=== PATIENT | female | born 1950 | race African-American/Black ===

== ENCOUNTER 2017-01-25 06:58 | Day surgery (SDC) | payer MEDICARE, BC ==
[~2017-01-25] VITALS: Ht 168.9 cm; Wt 65.0 kg
[2017-01-25] VITALS (10 sets, daily range): BP systolic 94–131; BP diastolic 52–74; PULSE 50–74; RESP 15–31; Ht 168.9 cm; Wt 65.0 kg
[~2017-01-25 06:58] MED LIST: AMLO-218 PO; BUPR100T6 PO; CRES10 PO; ESCI10TA PO; ISOS20TA PO
--- NOTE | 2017-01-25 07:43 | RADRPT ---
PROCEDURE: XR Chest. CLINICAL INDICATION: Preoperative TECHNIQUE: Single frontal chest x-ray. COMPARISON: None. FINDINGS: The lungs are clear of acute infiltrates, edema, effusions, or masses. Calcific atherosclerosis of t he aorta is present.. The cardiomediastinal silhouette is unremarkable. The osseous structures are intact. IMPRESSION: No acute cardiopulmonary disease. RPTAT: AA .Paco Calle MD, MD Date Time Electronically viewed and signed by .Paco Calle MD, on 01/25/2017 07:43 .L/
[2017-01-25] MEDS ORDERED: LOSA100T7 PO (07:44)
[2017-01-25] MEDS ORDERED: ATOR40TA68 PO (07:46)
[2017-01-25] MEDS ORDERED: ISOS60TA PO (07:47)
[2017-01-25] MEDS ORDERED: AMLO2.5T78 PO (07:48)
[2017-01-25] MEDS ORDERED: ESCI20TA38 PO (07:48)
[2017-01-25] MEDS ORDERED: HEPARIN 1000 UNITS/ML 10 ML INJ ONE (08:25)
[2017-01-25] MEDS ORDERED: IODIXANOL LOCM 100 ML BTL ONE (08:25)
[2017-01-25] MEDS ORDERED: LIDOCAINE 1% (MDV) 20 ML INJ ONE (08:25)
[2017-01-25] MEDS ORDERED: VERAPAMIL 5 MG INJ ONE ×2 (08:26→10:11)
[2017-01-25] MEDS ORDERED: FENTAnyl 50 MCG/ML VIAL ONE (08:26)
[2017-01-25] MEDS ORDERED: MIDAZOLAM 1 MG/ML 2 ML INJ ONE (08:26)
[2017-01-25] MEDS ORDERED: NITROGLYCERIN (IC) 100 MCG/ML INJ ONE ×2 (08:26→10:08)
[2017-01-25 08:32] LABS: BASOPHIL # 0.1 10^3/ul (0.0-0.1); BASOPHILS % 0.9 % (0.0-2.0); EOSINOPHILS # 0.1 10^3/ul (0.0-0.5); EOSINOPHILS % 1.4 % (0.0-7.0); HEMATOCRIT 37.1 % (37.0-47.0); HEMOGLOBIN 12.6 g/dl (12.0-16.0); LYMPHOCYTES # 1.9 10^3/ul (0.8-2.9); LYMPHOCYTES % 28.5 % (15.0-51.0); MEAN CORPUSCULAR HEMOGLOBIN 29.5 pg (29.0-33.0); MEAN CORPUSCULAR VOLUME 86.9 fl (82.0-101.0); MEAN PLATELET VOLUME 10.2 fl (7.4-10.4); MONOCYTE # 0.7 10^3/ul (0.3-0.9); MONOCYTES % 11.1 % (0.0-11.0); NEUTROPHIL # 3.8 10^3/ul (1.6-7.5); NEUTROPHILS % 57.8 % (39.0-77.0); PLATELET COUNT 253 10^3/UL (140-415); RED BLOOD COUNT 4.27 10^6/ul (4.20-5.40); RED CELL DISTRIBUTION WIDTH 13.3 % (11.5-14.5); WHITE BLOOD COUNT 6.6 10^3/ul (4.8-10.8)
[2017-01-25 08:56] LABS: ALBUMIN 4.1 g/dl (3.3-4.9); ALBUMIN/GLOBULIN RATIO 1.13; BILIRUBIN,INDIRECT 0.3 mg/dl (0-1.1); BILIRUBIN,TOTAL 0.3 mg/dl (0.2-1.3); CHOL/HDL RATIO 3.8 RATIO; TOTAL PROTEIN 7.7 g/dl (6.1-8.1)
[2017-01-25 08:57] LABS: CALCIUM 9.4 mg/dl (8.4-10.2); CREATININE 1.33 mg/dl (0.44-1.00); POTASSIUM 3.6 mmol/L (3.5-5.1)
[2017-01-25 09:05] LABS: INR 0.95; PROTIME 12.7 Sec (12.2-14.2)
[2017-01-25 09:06] LABS: PARTIAL THROMBOPLASTIN TIME 28.6 Sec (25.0-35.0)
[2017-01-25] MEDS ORDERED: SOD CHLORIDE 0.9% 1,000 ML IV SCH (10:14)
[2017-01-25] MEDS ORDERED: ACETAMINOPHEN 325 MG TAB PO PRN (10:30)
[2017-01-25] MEDS ORDERED: ONDANSETRON 4 MG INJ IV PRN (10:30)
[2017-01-25] MEDS ORDERED: AL HYDROX/MG HYDROX/SIMETH 30 ML CUP PO PRN (10:30)
--- NOTE | 2017-01-25 10:30 | OPR ---
Date/Time of Note Date/Time of Note DATE: 01/25/17 TIME: 10:16 Operative Report Procedure Date: Jan 25, 2017 Preoperative Diagnosis chest pain/ abnormal MPI Postoperative Diagnosis obstructive cad Operation Performed 1.Left Heart catheterization 2.Coronary angiography 3. Measurement of LVEDP 4.Moderate concious sedation x 45 minutes Surgeon: DANITA MELARA Anesthesia: other (moderate concious sedation) Estimated Blood Loss: minimal Specimens NA Grafts/Implants NA Tubes/Drains NA Complications: None Pt Condition Post Procedure: stable Disposition: PACU Indications Chest pain and abnormal mpi Operative\Procedure Findings Coronary angiography: 50-60% mid LAD, 50% OM1/LCX, 100% proximal RCA with L to R collateral flow via septal off LAD LVEDP 17 NO sig by gradient REcc: 1.Maximize medical therapy 2. Aggresive risk factor reduction 3.Smoking cessation 4.For ongoing sx consider further eval of mid LAD lesion with FFR which was unable to be done today due to worsening spasm of radial artery which was treated with nitro/verapamil Procedure Description Equipment: 6 [place] JL 3.5, JR4 Had some spasm of radial sheath on D/C improved with Nitro/verapamil DANITA MELARA Jan 25, 2017 10:27
--- NOTE | 2017-01-25 15:37 | RADRPT ---
Vent Rate: 61 bpm RR Interval: 0 msec WA Interval: 114 msec QRS Duration: 96 msec QT Interval: 466 msec QTC Interval: 469 msec P-R-T [place]: 5 - 59 - 23 degrees Normal sinus rhythm Normal ECG Electronically Signed By: Jaxon Howell [id number]
== END 2017-01-25 13:42 | disposition home or self-care (01) ==
LOC: SDS 06:58
PROVIDERS: ATTEND Internal Medicine
DX: I25.10 Atherosclerotic heart disease of native coronary artery without angina pectoris (principal); R94.39 Abnormal result of other cardiovascular function study
CPT/HCPCS: 71010; 80053; 80061; 85025; 85610; 85730; 93005; 93458; C1769; C1887; J1644; J2250; J3010; Q9967